=== PATIENT | female | born 1955 | race Caucasian/White ===

== ENCOUNTER 2018-01-06 13:26 | Inpatient (IN) | payer OTHER ==
[~2018-01-06] VITALS: Ht 157.5 cm; Wt 75.4 kg
[2018-01-06] MEDS ORDERED: LIPITOR80 MG PO (13:36)
[2018-01-06] MEDS ORDERED: PROZAC40 MG PO (13:39)
[2018-01-06] MEDS ORDERED: AMITRIPTYLINE H50 MG PO (13:42)
[2018-01-06] MEDS ORDERED: NEURONTIN800 MG PO (13:43)
[2018-01-06] MEDS ORDERED: AVAPRO150 MG PO (13:44)
[2018-01-06] MEDS ORDERED: TOPROL XL25 MG PO (13:45)
[2018-01-06] MEDS ORDERED: ZANAFLEX4 MG PO (13:46)
[2018-01-06 16:46] VITALS: BP 180/75
[2018-01-06 19:00] VITALS: BP 136/60
[2018-01-06 22:18] LABS: CHLORIDE 109 mEq/L (99-109); POTASSIUM 3.7 mEq/L (3.7-5.4); SODIUM 133 mEq/L (136-147)
[2018-01-06 22:20] LABS: GLUCOSE 171 mg/dL (70-99)
[2018-01-06 22:24] LABS: CREATININE 0.6 mg/dL (0.6-1.3); GFR ESTIMATE (CALCULATED) > 59 mL/min/
[2018-01-06 22:25] LABS: UREA NITROGEN (BUN) 8 mg/dL (9-23)
[2018-01-06 23:48] VITALS: BP 123/60
[2018-01-07 03:50] VITALS: BP 143/65
[2018-01-07 05:57] LABS: HEMATOCRIT 32.5 % (36.0-46.0); HEMOGLOBIN 10.8 G/DL (11.9-15.5); MCH 30.9 PG (29.0-34.0); MCHC 33.2 G/DL (30.0-36.0); MCV 92.9 FL (83-99); PLATELET COUNT 162 K/uL (156-360); RBC DIS.WIDTH-SD 47.7 % (39-53)
[2018-01-07 06:23] LABS: ALBUMIN 2.8 G/DL (3.2-4.8); ALKALINE PHOSPHATASE 63 IU/L (3-129); ALT (GPT) 45 IU/L (3-49); AST (GOT) 35 IU/L (2-34); CHLORIDE 106 MEQ/L (99-109); CREATININE 0.5 MG/DL (0.6-1.3); GFR ESTIMATE (CALCULATED) > 59 mL/min/; LIPASE 77 U/L (1.0-51.0); POTASSIUM 3.5 MEQ/L (3.7-5.4); SODIUM 136 MEQ/L (136-147); TOTAL BILIRUBIN 1.1 MG/DL (0.0-1.0); TOTAL PROTEIN 5.5 G/DL (6.4-8.3); UREA NITROGEN (BUN) 6 mg/dL (9-23)
[2018-01-07 06:34] LABS: GLUCOSE 119 mg/dL (70-99)
[2018-01-07 07:44] VITALS: BP 184/81
[2018-01-07 10:23] LABS: HEMATOCRIT 30.8 % (36.0-46.0); HEMOGLOBIN 10.5 G/DL (11.9-15.5); MCH 31.3 PG (29.0-34.0); MCHC 34.1 G/DL (30.0-36.0); MCV 91.7 FL (83-99); PLATELET COUNT 167 K/uL (156-360); RBC DIS.WIDTH-CV 13.7 % (11.8-14.6); RBC DIS.WIDTH-SD 46.6 % (39-53); RED BLOOD COUNT 3.36 M/uL (3.80-5.20); WHITE BLOOD COUNT 11.6 K/uL (4.1-10.2)
[2018-01-07 10:46] LABS: ALBUMIN 2.7 G/DL (3.2-4.8); CHLORIDE 105 MEQ/L (99-109); POTASSIUM 3.3 MEQ/L (3.7-5.4); SODIUM 136 MEQ/L (136-147); TOTAL BILIRUBIN 1.2 MG/DL (0.0-1.0)
[2018-01-07 10:52] LABS: ALKALINE PHOSPHATASE 63 IU/L (3-129); ALT (GPT) 44 IU/L (3-49); AST (GOT) 38 IU/L (2-34); CREATININE 0.5 MG/DL (0.6-1.3); GFR ESTIMATE (CALCULATED) > 59 mL/min/; GLUCOSE 144 mg/dL (70-99); LIPASE 71 U/L (1.0-51.0); TOTAL PROTEIN 4.7 G/DL (6.4-8.3); UREA NITROGEN (BUN) 6 mg/dL (9-23)
[2018-01-07 19:35] VITALS: BP 109/56
[2018-01-07 23:25] VITALS: BP 115/73
[2018-01-08] VITALS (7 sets, daily range): BP systolic 125–177; BP diastolic 58–78
[2018-01-08 05:30] LABS: HEMATOCRIT 32.8 % (36.0-46.0); HEMOGLOBIN 10.9 G/DL (11.9-15.5); MCH 31.1 PG (29.0-34.0); MCHC 33.2 G/DL (30.0-36.0); MCV 93.4 FL (83-99); PLATELET COUNT 177 K/uL (156-360); RBC DIS.WIDTH-SD 47.2 % (39-53); RED BLOOD COUNT 3.51 M/uL (3.80-5.20)
[2018-01-08 06:10] LABS: ALBUMIN 3.1 G/DL (3.2-4.8); ALKALINE PHOSPHATASE 62 IU/L (3-129); ALT (GPT) 55 IU/L (3-49); CHLORIDE 104 MEQ/L (99-109); CREATININE 0.4 MG/DL (0.6-1.3); GFR ESTIMATE (CALCULATED) > 59 mL/min/; GLUCOSE 117 mg/dL (70-99); LIPASE 92 U/L (1.0-51.0); POTASSIUM 3.7 MEQ/L (3.7-5.4); SODIUM 138 MEQ/L (136-147); TOTAL BILIRUBIN 1.3 MG/DL (0.0-1.0); TOTAL PROTEIN 5.2 G/DL (6.4-8.3); UREA NITROGEN (BUN) 3 mg/dL (9-23)
[2018-01-08 06:18] LABS: AST (GOT) 61 IU/L (2-34)
[2018-01-08 21:05] LABS: TRIGLYCERIDES 94 MG/DL (Normal: <150)
[2018-01-09] VITALS (24 sets, daily range): BP systolic 86–180; BP diastolic 43–88
[2018-01-09 02:36] LABS: TROP-I INTERPRETATION NEGATIVE; TROPONIN-I 0.09 ng/mL (0.0-0.30)
[2018-01-09 05:11] LABS: BASE EXCESS 4.1 mEq/L (-3 to +3); BICARBONATE 26.7 mEq/L (22-26); CARBOXY HGB 0.6 % (0-5); COMMENTS - BLOOD GASES C+A+; DEVICE VENT; FI02 40 %; MECHANICAL RATE 16 resp/min; METHEMOGLOBIN 1.1 % (0-1.5); MODE AC; O2 SATURATION (CALCULATED) 97.8 % (95-99); PCO2 32 mm Hg (35-45); PEEP 5 CM/H20; PO2 84 mm Hg (80-100); SITE RR; TIDAL VOLUME 450 ML; TOTAL RESP RATE 16 resp/min; pH 7.53 (7.35-7.45)
[2018-01-09 05:23] LABS: BASOPHIL (%) 0.2 % (0-1); EOSINOPHIL (%) 0.1 % (0-5); HEMATOCRIT 27.2 % (36.0-46.0); HEMOGLOBIN 9.5 G/DL (11.9-15.5); IMMATURE GRANULOCYTE (%) 1.9 % (0.0-0.7); LYMPHOCYTE (%) 4.7 % (15-42); LYMPHOCYTE COUNT 0.5 K/uL (1.0-2.8); MCH 31.8 PG (29.0-34.0); MCHC 34.9 G/DL (30.0-36.0); MONOCYTE (%) 5.4 % (3-12); MONOCYTE COUNT 0.6 K/uL (0-0.8); NEUTROPHIL (%) 87.7 % (45-76); NEUTROPHIL COUNT 9.1 K/uL (1.8-6.4); PLATELET COUNT 166 K/uL (156-360); RBC DIS.WIDTH-CV 14.2 % (11.8-14.6); RBC DIS.WIDTH-SD 47.3 % (39-53); RED BLOOD COUNT 2.99 M/uL (3.80-5.20); WHITE BLOOD COUNT 10.4 K/uL (4.1-10.2)
[2018-01-09 11:21] LABS: ALBUMIN 2.5 g/dL (3.2-4.8); CHLORIDE 106 mEq/L (99-109); SODIUM 140 mEq/L (136-147)
[2018-01-09 11:23] LABS: GLUCOSE 115 mg/dL (70-99)
[2018-01-09 11:24] LABS: TOTAL PROTEIN 5.2 g/dL (6.4-8.3)
[2018-01-09 11:25] LABS: TOTAL BILIRUBIN 0.8 mg/dL (0.0-1.0)
[2018-01-09 11:27] LABS: ALKALINE PHOSPHATASE 75 IU/L (3-129); CREATININE 0.6 mg/dL (0.6-1.3); GFR ESTIMATE (CALCULATED) > 59 mL/min/
[2018-01-09 11:28] LABS: UREA NITROGEN (BUN) 3 mg/dL (9-23)
[2018-01-09 11:29] LABS: AST (GOT) 89 IU/L (2-34)
[2018-01-09 11:30] LABS: ALT (GPT) 78 IU/L (3-49)
[2018-01-09 11:31] LABS: POTASSIUM 2.9 mEq/L (3.7-5.4)
[2018-01-09 14:31] LABS: BASE EXCESS 5.4 mEq/L (-3 to +3); BICARBONATE 28.7 mEq/L (22-26); CARBOXY HGB 0.5 % (0-5); COMMENTS - BLOOD GASES A+C+; DEVICE 840; FI02 40 %; METHEMOGLOBIN 0.9 % (0-1.5); MODE SPON; O2 SATURATION (CALCULATED) 96.2 % (95-99); PCO2 36 mm Hg (35-45); PEEP 5 CM/H20; PO2 70 mm Hg (80-100); PRES. SUPPORT 12 CM/H2O; SITE RR; TOTAL RESP RATE 18 resp/min; pH 7.51 (7.35-7.45)
[2018-01-09 16:34] LABS: SITE RR
[2018-01-09 16:35] LABS: BASE EXCESS 4.6 mEq/L (-3 to +3); BICARBONATE 28.2 mEq/L (22-26); CARBOXY HGB 0.5 % (0-5); COMMENTS - BLOOD GASES A+C+; DEVICE 840; FI02 40 %; METHEMOGLOBIN 0.6 % (0-1.5); MODE TC; O2 SATURATION (CALCULATED) 96.5 % (95-99); PCO2 37 mm Hg (35-45); PEEP 5 CM/H20; PO2 73 mm Hg (80-100); TOTAL RESP RATE 21 resp/min; pH 7.49 (7.35-7.45)
[2018-01-10] VITALS (24 sets, daily range): BP systolic 107–169; BP diastolic 53–90
[2018-01-10 06:26] LABS: ALBUMIN 2.6 G/DL (3.2-4.8); ALKALINE PHOSPHATASE 76 IU/L (3-129); ALT (GPT) 57 IU/L (3-49); AST (GOT) 65 IU/L (2-34); CHLORIDE 100 MEQ/L (99-109); CREATININE 0.5 MG/DL (0.6-1.3); GFR ESTIMATE (CALCULATED) > 59 mL/min/; POTASSIUM 2.8 MEQ/L (3.7-5.4); SODIUM 141 MEQ/L (136-147); TOTAL PROTEIN 4.5 G/DL (6.4-8.3); UREA NITROGEN (BUN) 6 mg/dL (9-23)
[2018-01-10 06:36] LABS: GLUCOSE 77 mg/dL (70-99)
[2018-01-10 20:08] LABS: CHLORIDE 99 MEQ/L (99-109); CREATININE 0.4 MG/DL (0.6-1.3); GFR ESTIMATE (CALCULATED) > 59 mL/min/; GLUCOSE 128 mg/dL (70-99); POTASSIUM 2.7 MEQ/L (3.7-5.4); SODIUM 137 MEQ/L (136-147); UREA NITROGEN (BUN) 6 mg/dL (9-23)
[2018-01-11] VITALS (15 sets, daily range): BP systolic 121–176; BP diastolic 68–98
[2018-01-11 05:36] LABS: BASOPHIL (%) 0.3 % (0-1); BASOPHIL COUNT 0.1 K/uL (0-0.1); EOSINOPHIL (%) 0.2 % (0-5); HEMATOCRIT 31.7 % (36.0-46.0); LYMPHOCYTE (%) 3.3 % (15-42); LYMPHOCYTE COUNT 0.6 K/uL (1.0-2.8); MCH 31.1 PG (29.0-34.0); MCHC 34.7 G/DL (30.0-36.0); MCV 89.5 FL (83-99); MONOCYTE (%) 3.5 % (3-12); MONOCYTE COUNT 0.7 K/uL (0-0.8); NEUTROPHIL (%) 90.7 % (45-76); NEUTROPHIL COUNT 17.8 K/uL (1.8-6.4); RBC DIS.WIDTH-CV 14.1 % (11.8-14.6); RBC DIS.WIDTH-SD 46.3 % (39-53); RED BLOOD COUNT 3.54 M/uL (3.80-5.20); WHITE BLOOD COUNT 19.6 K/uL (4.1-10.2)
[2018-01-11 05:46] LABS: MAGNESIUM 2.1 mg/dl (1.3-2.7)
[2018-01-11 05:48] LABS: PLATELET COUNT 276 K/uL (156-360)
[2018-01-11 06:05] LABS: ALBUMIN 2.7 G/DL (3.2-4.8); ALT (GPT) 65 IU/L (3-49); AST (GOT) 79 IU/L (2-34); CHLORIDE 95 MEQ/L (99-109); CREATININE 0.4 MG/DL (0.6-1.3); GFR ESTIMATE (CALCULATED) > 59 mL/min/; GLUCOSE 113 mg/dL (70-99); PHOSPHORUS 2.1 mg/dL (2.5-4.9); SODIUM 135 MEQ/L (136-147); TOTAL BILIRUBIN 1.2 MG/DL (0.0-1.0); TOTAL PROTEIN 5.1 G/DL (6.4-8.3); UREA NITROGEN (BUN) 6 mg/dL (9-23)
[2018-01-11 06:06] LABS: ALKALINE PHOSPHATASE 103 IU/L (3-129); POTASSIUM 3.3 MEQ/L (3.7-5.4)
[2018-01-11 14:30] LABS: CHLORIDE 96 MEQ/L (99-109); CREATININE 0.4 MG/DL (0.6-1.3); GFR ESTIMATE (CALCULATED) > 59 mL/min/; GLUCOSE 137 mg/dL (70-99); MAGNESIUM 1.9 mg/dl (1.3-2.7); PHOSPHORUS 1.8 mg/dL (2.5-4.9); POTASSIUM 2.7 MEQ/L (3.7-5.4); SODIUM 136 MEQ/L (136-147); UREA NITROGEN (BUN) 5 mg/dL (9-23)
[2018-01-11 19:41] LABS: HIGH-SENS C-REACTIVE PROTEIN > 8.00 MG/DL (0.02-0.20)
[2018-01-11 19:42] LABS: CREATINE KINASE 114 IU/L (1-294)
[2018-01-11 20:12] LABS: THYROTROPIN (TSH) 6.5 MIU/L (0.4-5.5)
[2018-01-12] VITALS (9 sets, daily range): BP systolic 99–171; BP diastolic 69–102
[2018-01-12 05:06] LABS: BASOPHIL (%) 0.3 % (0-1); BASOPHIL COUNT 0.1 K/uL (0-0.1); EOSINOPHIL (%) 0.6 % (0-5); EOSINOPHIL COUNT 0.1 K/uL (0-0.3); HEMATOCRIT 31.3 % (36.0-46.0); HEMOGLOBIN 10.7 G/DL (11.9-15.5); IMMATURE GRANULOCYTE (%) 1.5 % (0.0-0.7); LYMPHOCYTE (%) 3.8 % (15-42); LYMPHOCYTE COUNT 0.6 K/uL (1.0-2.8); MCH 30.6 PG (29.0-34.0); MCHC 34.2 G/DL (30.0-36.0); MCV 89.4 FL (83-99); MONOCYTE (%) 4.3 % (3-12); MONOCYTE COUNT 0.7 K/uL (0-0.8); NEUTROPHIL (%) 89.5 % (45-76); NEUTROPHIL COUNT 13.9 K/uL (1.8-6.4); PLATELET COUNT 307 K/uL (156-360); WHITE BLOOD COUNT 15.5 K/uL (4.1-10.2)
[2018-01-12 05:46] LABS: ALBUMIN 2.5 G/DL (3.2-4.8); ALT (GPT) 65 IU/L (3-49); AST (GOT) 75 IU/L (2-34); CHLORIDE 99 MEQ/L (99-109); CREATININE 0.4 MG/DL (0.6-1.3); GFR ESTIMATE (CALCULATED) > 59 mL/min/; GLUCOSE 155 mg/dL (70-99); MAGNESIUM 2.1 mg/dl (1.3-2.7); POTASSIUM 3.1 MEQ/L (3.7-5.4); SODIUM 137 MEQ/L (136-147); TOTAL PROTEIN 4.8 G/DL (6.4-8.3); UREA NITROGEN (BUN) 5 mg/dL (9-23)
[2018-01-12 05:50] LABS: ALKALINE PHOSPHATASE 73 IU/L (3-129); PHOSPHORUS 3.3 mg/dL (2.5-4.9)
[2018-01-12 14:55] LABS: ALBUMIN 2.7 G/DL (3.2-4.8); ALKALINE PHOSPHATASE 96 IU/L (3-129); ALT (GPT) 66 IU/L (3-49); AST (GOT) 69 IU/L (2-34); CHLORIDE 101 MEQ/L (99-109); CREATININE 0.4 MG/DL (0.6-1.3); GFR ESTIMATE (CALCULATED) > 59 mL/min/; GLUCOSE 129 mg/dL (70-99); MAGNESIUM 2.1 mg/dl (1.3-2.7); PHOSPHORUS 2.3 mg/dL (2.5-4.9); POTASSIUM 3.6 MEQ/L (3.7-5.4); SODIUM 135 MEQ/L (136-147); TOTAL BILIRUBIN 1.1 MG/DL (0.0-1.0); TOTAL PROTEIN 5.3 G/DL (6.4-8.3); UREA NITROGEN (BUN) 6 mg/dL (9-23)
[2018-01-13] VITALS (8 sets, daily range): BP systolic 118–183; BP diastolic 59–93
[2018-01-13 05:50] LABS: BASOPHIL (%) 0.5 % (0-1); BASOPHIL COUNT 0.1 K/uL (0-0.1); EOSINOPHIL (%) 0.4 % (0-5); EOSINOPHIL COUNT 0.1 K/uL (0-0.3); HEMATOCRIT 32.9 % (36.0-46.0); HEMOGLOBIN 11.2 G/DL (11.9-15.5); IMMATURE GRANULOCYTE (%) 2.2 % (0.0-0.7); LYMPHOCYTE (%) 5.3 % (15-42); LYMPHOCYTE COUNT 0.8 K/uL (1.0-2.8); MCH 30.6 PG (29.0-34.0); MCV 89.9 FL (83-99); MONOCYTE (%) 5.2 % (3-12); MONOCYTE COUNT 0.8 K/uL (0-0.8); NEUTROPHIL (%) 86.4 % (45-76); NEUTROPHIL COUNT 13.6 K/uL (1.8-6.4); PLATELET COUNT 354 K/uL (156-360); RBC DIS.WIDTH-CV 14.1 % (11.8-14.6); RBC DIS.WIDTH-SD 46.7 % (39-53); RED BLOOD COUNT 3.66 M/uL (3.80-5.20); WHITE BLOOD COUNT 15.7 K/uL (4.1-10.2)
[2018-01-13 06:22] LABS: ALBUMIN 2.8 G/DL (3.2-4.8); ALKALINE PHOSPHATASE 82 IU/L (3-129); ALT (GPT) 60 IU/L (3-49); AST (GOT) 58 IU/L (2-34); CHLORIDE 101 MEQ/L (99-109); CREATININE 0.5 MG/DL (0.6-1.3); GFR ESTIMATE (CALCULATED) > 59 mL/min/; POTASSIUM 3.5 MEQ/L (3.7-5.4); SODIUM 140 MEQ/L (136-147); TOTAL BILIRUBIN 1.1 MG/DL (0.0-1.0); TOTAL PROTEIN 5.2 G/DL (6.4-8.3); UREA NITROGEN (BUN) 6 mg/dL (9-23)
[2018-01-13 06:42] LABS: GLUCOSE 92 mg/dL (70-99); PHOSPHORUS 3.2 mg/dL (2.5-4.9)
[2018-01-13 17:28] LABS: C DIFF TOXIN NEGATIVE (NEGATIVE)
[2018-01-14 04:38] VITALS: BP 147/68
[2018-01-14 05:47] LABS: BASOPHIL (%) 0.5 % (0-1); BASOPHIL COUNT 0.1 K/uL (0-0.1); EOSINOPHIL (%) 0.8 % (0-5); EOSINOPHIL COUNT 0.1 K/uL (0-0.3); HEMATOCRIT 31.2 % (36.0-46.0); HEMOGLOBIN 10.6 G/DL (11.9-15.5); IMMATURE GRANULOCYTE (%) 1.8 % (0.0-0.7); LYMPHOCYTE (%) 6.3 % (15-42); LYMPHOCYTE COUNT 0.8 K/uL (1.0-2.8); MCH 30.6 PG (29.0-34.0); MCV 90.2 FL (83-99); MONOCYTE (%) 6.9 % (3-12); MONOCYTE COUNT 0.9 K/uL (0-0.8); NEUTROPHIL (%) 83.7 % (45-76); NEUTROPHIL COUNT 10.9 K/uL (1.8-6.4); PLATELET COUNT 380 K/uL (156-360); RBC DIS.WIDTH-CV 14.4 % (11.8-14.6); RBC DIS.WIDTH-SD 47.6 % (39-53); RED BLOOD COUNT 3.46 M/uL (3.80-5.20)
[2018-01-14 06:05] LABS: ALBUMIN 2.8 G/DL (3.2-4.8); ALKALINE PHOSPHATASE 80 IU/L (3-129); ALT (GPT) 51 IU/L (3-49); AST (GOT) 53 IU/L (2-34); CHLORIDE 101 MEQ/L (99-109); CREATININE 0.4 MG/DL (0.6-1.3); GFR ESTIMATE (CALCULATED) > 59 mL/min/; GLUCOSE 96 mg/dL (70-99); PHOSPHORUS 3.6 mg/dL (2.5-4.9); POTASSIUM 2.9 MEQ/L (3.7-5.4); SODIUM 139 MEQ/L (136-147); UREA NITROGEN (BUN) 7 mg/dL (9-23)
[2018-01-14 08:53] VITALS: BP 149/71
[2018-01-14 12:00] VITALS: BP 156/66
[2018-01-14 15:41] VITALS: BP 149/95
[2018-01-14 19:19] VITALS: BP 141/82
[2018-01-15] VITALS: BP 144/78
[2018-01-15 04:49] VITALS: BP 141/80
[2018-01-15 05:51] LABS: BASOPHIL (%) 0.3 % (0-1); EOSINOPHIL (%) 1.2 % (0-5); EOSINOPHIL COUNT 0.1 K/uL (0-0.3); HEMATOCRIT 30.3 % (36.0-46.0); HEMOGLOBIN 10.2 G/DL (11.9-15.5); IMMATURE GRANULOCYTE (%) 1.5 % (0.0-0.7); LYMPHOCYTE (%) 7.5 % (15-42); LYMPHOCYTE COUNT 0.9 K/uL (1.0-2.8); MCH 30.6 PG (29.0-34.0); MCHC 33.7 G/DL (30.0-36.0); MONOCYTE (%) 7.1 % (3-12); MONOCYTE COUNT 0.8 K/uL (0-0.8); NEUTROPHIL (%) 82.4 % (45-76); NEUTROPHIL COUNT 9.8 K/uL (1.8-6.4); PLATELET COUNT 426 K/uL (156-360); RBC DIS.WIDTH-CV 14.3 % (11.8-14.6); RBC DIS.WIDTH-SD 47.9 % (39-53); RED BLOOD COUNT 3.33 M/uL (3.80-5.20); WHITE BLOOD COUNT 11.9 K/uL (4.1-10.2)
[2018-01-15 06:10] LABS: ALBUMIN 2.9 G/DL (3.2-4.8); ALKALINE PHOSPHATASE 83 IU/L (3-129); ALT (GPT) 42 IU/L (3-49); AST (GOT) 44 IU/L (2-34); CHLORIDE 103 MEQ/L (99-109); CREATININE 0.4 MG/DL (0.6-1.3); GFR ESTIMATE (CALCULATED) > 59 mL/min/; GLUCOSE 94 mg/dL (70-99); PHOSPHORUS 2.9 mg/dL (2.5-4.9); POTASSIUM 3.3 MEQ/L (3.7-5.4); SODIUM 137 MEQ/L (136-147); TOTAL BILIRUBIN 0.8 MG/DL (0.0-1.0); UREA NITROGEN (BUN) 5 mg/dL (9-23)
[2018-01-15 06:14] LABS: TOTAL PROTEIN 5.9 G/DL (6.4-8.3)
[2018-01-15 07:05] VITALS: BP 145/64
[2018-01-15 11:10] VITALS: BP 139/68
[2018-01-15 16:09] VITALS: BP 135/67
[2018-01-15 21:00] VITALS: BP 156/79
[2018-01-16 01:25] VITALS: BP 122/59
[2018-01-16 05:22] VITALS: BP 123/60
[2018-01-16 05:50] LABS: BASOPHIL (%) 0.5 % (0-1); BASOPHIL COUNT 0.1 K/uL (0-0.1); EOSINOPHIL (%) 1.5 % (0-5); EOSINOPHIL COUNT 0.2 K/uL (0-0.3); HEMATOCRIT 30.2 % (36.0-46.0); HEMOGLOBIN 10.1 G/DL (11.9-15.5); LYMPHOCYTE (%) 9.7 % (15-42); LYMPHOCYTE COUNT 1.2 K/uL (1.0-2.8); MCH 30.8 PG (29.0-34.0); MCHC 33.4 G/DL (30.0-36.0); MCV 92.1 FL (83-99); MONOCYTE (%) 8.2 % (3-12); NEUTROPHIL (%) 78.1 % (45-76); NEUTROPHIL COUNT 9.6 K/uL (1.8-6.4); PLATELET COUNT 467 K/uL (156-360); RBC DIS.WIDTH-CV 14.3 % (11.8-14.6); RBC DIS.WIDTH-SD 48.9 % (39-53); RED BLOOD COUNT 3.28 M/uL (3.80-5.20); WHITE BLOOD COUNT 12.2 K/uL (4.1-10.2)
[2018-01-16 06:51] LABS: ALBUMIN 2.8 G/DL (3.2-4.8); ALKALINE PHOSPHATASE 71 IU/L (3-129); ALT (GPT) 36 IU/L (3-49); AST (GOT) 37 IU/L (2-34); CHLORIDE 105 MEQ/L (99-109); CREATININE 0.5 MG/DL (0.6-1.3); GFR ESTIMATE (CALCULATED) > 59 mL/min/; GLUCOSE 107 mg/dL (70-99); PHOSPHORUS 3.1 mg/dL (2.5-4.9); POTASSIUM 3.4 MEQ/L (3.7-5.4); SODIUM 140 MEQ/L (136-147); TOTAL PROTEIN 5.9 G/DL (6.4-8.3); UREA NITROGEN (BUN) 6 mg/dL (9-23)
[2018-01-16 06:57] LABS: TOTAL BILIRUBIN 0.6 MG/DL (0.0-1.0)
[2018-01-16 08:17] VITALS: BP 140/69
[2018-01-16 11:16] VITALS: BP 138/65
[2018-01-16] MEDS ORDERED: PEPCID20 MG PO (12:25)
== END 2018-01-16 14:00 | disposition home or self-care (01) | DRG 853 ==
LOC: AMB 13:26 → 2SOUTH 14:37 → 4SOUTH 14:37 → ENRESERV 15:01 → 4SOUTH 16:35 → ENRESERV 01-08 20:37 → 4WEST 01-08 21:03 → ENRESERV 01-12 14:22 → 4EAST 01-12 15:46 → ENPENDDIS 01-16 → 4EAST 01-16 14:00
PROVIDERS: Internal Medicine; Internal Medicine Gastroenterology; Nurse Practitioner Family; Physician Assistant Medical; Physician Assistant Surgical; Surgery
DX: A41.9 Sepsis, unspecified organism (principal); R65.20 Severe sepsis without septic shock; K80.67 Calculus of gallbladder and bile duct with acute and chronic cholecystitis with obstruction; K85.10 Biliary acute pancreatitis without necrosis or infection; B95.2 Enterococcus as the cause of diseases classified elsewhere; K65.9 Peritonitis, unspecified; R18.8 Other ascites; J18.9 Pneumonia, unspecified organism; J96.00 Acute respiratory failure, unspecified whether with hypoxia or hypercapnia; F05 Delirium due to known physiological condition; R19.7 Diarrhea, unspecified; E88.09 Other disorders of plasma-protein metabolism, not elsewhere classified; E87.6 Hypokalemia; D64.9 Anemia, unspecified; K42.9 Umbilical hernia without obstruction or gangrene; I48.0 Paroxysmal atrial fibrillation; I10 Essential (primary) hypertension; I25.10 Atherosclerotic heart disease of native coronary artery without angina pectoris; E78.5 Hyperlipidemia, unspecified; F32.9 Major depressive disorder, single episode, unspecified; F41.9 Anxiety disorder, unspecified; G89.29 Other chronic pain; M54.9 Dorsalgia, unspecified; I49.3 Ventricular premature depolarization; E66.9 Obesity, unspecified; I25.2 Old myocardial infarction; Z88.2 Allergy status to sulfonamides; Z88.5 Allergy status to narcotic agent; Z95.5 Presence of coronary angioplasty implant and graft; Z68.34 Body mass index [BMI] 34.0-34.9, adult
CPT/HCPCS: 36600; 71045; 74176; 74177; 74328; 80048; 80048 91; 80053; 82533 91; 82550; 82948; 83605; 83690; 83735; 84100; 84134; 84145 90; 84439; 84443; 84478; 84484; 85025; 85027; 86141; 87070; 87075; 87077; 87081; 87186; 87205; 87493; 87641; 88108; 88304; 92523 GN; 92526 GN; 92610 GN; 93005; 94002; 94003; 94640; 94799; 97530 GO; 97530 GP; C1751; C1757; C1769; G0378; J0360; J1100; J1170; J1644; J1940; J2060; J2250; J2405; J2543; J2704; J2710; J3010; J3475; J3480; J7030; J7050; J7643; P9047; S0028; S0074